=== PATIENT | female | born 1975 | race American Indian/Alaskan Native ===

== ENCOUNTER 2016-11-01 17:24 | Emergency (ER) | payer MEDICAID ==
[2016-11-01 17:45] VITALS: BP 144/91
--- NOTE | 2016-11-01 17:54 | Emergency Department Report ---
Chief Complaint: Abdominal Pain Stated Complaint: 7 WKS /SEVERE ABD PAIN Time Seen by Provider: 11/01/16 17:49 - HPI History of Present Illness: PT states she found out she was at the end of last month. PT states she is high risk and has appointment for US next week. PT reports lower suprapubic abd pain x 2 days. PT states the pain became worse today. - ROS Review of Systems: - vaginal bleeding - discharge - dysuria + rectal pain - Exam Vital Signs: Vital Signs 11/01/16 17:40 Temperature 99.3 F Pulse Rate 79 Respiratory 20 Rate Blood Pressure 144/91 O2 Sat by Pulse 100 Oximetry Physical Exam: PT looks well, non toxic. steady gait. pt's abd is soft. with suprapubic tenderness. MSE screening note: Focused history and physical exam performed. Due to findings the following was ordered: ED Disposition for MSE Condition: Stable Instructions: Abdominal Pain (ED)
[2016-11-01 18:27] LABS: Basophils % (Auto) 1.2 % (0.0-1.8); Eosinophils % (Auto) 1.9 % (0.0-4.3); Hematocrit 40.3 % (30.3-42.9); Hemoglobin 13.1 gm/dl (10.1-14.3); Mean Corpuscular HGB Conc 33 % (30-34); Mean Corpuscular Hemoglobin 27 pg (28-32); Mean Corpuscular Volume 84 fl (79-97); Platelet Count 216 K/mm3 (140-440); Red Blood Count 4.79 M/mm3 (3.65-5.03); Red Cell Distribution Width 14.1 % (13.2-15.2); White Blood Count 5.2 K/mm3 (4.5-11.0)
[2016-11-01 18:45] LABS: Alanine Aminotransferase 25 units/L (7-56); Albumin 3.6 g/dL (3.9-5); Albumin/Globulin Ratio 1.2 %; Alkaline Phosphatase 67 units/L (35-129); Anion Gap 17 mmol/L; BUN/Creatinine Ratio 11.42; Bilirubin,Total < 0.2 mg/dL (0.1-1.2); Blood Urea Nitrogen 8 mg/dL (7-17); Calcium 8.7 mg/dL (8.4-10.2); Carbon Dioxide 23 mmol/L (22-30); Chloride 106.7 mmol/L (98-107); Glucose 107 mg/dL (65-100); Potassium 3.8 mmol/L (3.6-5.0); Sodium 143 mmol/L (137-145); Total Protein 6.5 g/dL (6.3-8.2)
--- NOTE | 2016-11-01 20:36 | Ultrasound Report ---
FINAL REPORT PROCEDURE: US OB TRANSVAGINAL TECHNIQUE: Real-time transvaginal sonography of the uterus, placenta, amniotic fluid, adnexa, and fetus was performed with image documentation. Measurements were obtained to determine age/size. M-mode Doppler was used to document heartbeat. CPT 74436 HISTORY: pain COMPARISON: No prior studies are available for comparison. FINDINGS: Possible gestational sac is seen in the endometrial canal measuring 11.9 millimeters in diameter corresponding to 6 weeks 0 days gestational age. Estimated date of delivery based on this measurement is June 27, 2017. Questionable yolk sac is seen but pole is not seen. viability is uncertain. Likely 1.4 cm fibroid is seen in the right side of the body of the uterus. Right ovary measures 2.6 x 2.8 x 2.9 cm. Left ovary measures 4.6 x 2.4 x 4.0 cm. No adnexal masses are seen. No free pelvic fluid is seen. IMPRESSION: Possible early IUP is seen at 6 weeks 0 days gestational age but the pole is not identified. viability is uncertain and serial followup quantitative beta HCG levels are recommended. Repeat ultrasound in 1 weeks time may be useful if these continue to rise.
--- NOTE | 2016-11-02 08:26 | Ultrasound Report ---
FINAL REPORT PROCEDURE: US OB \T\lt; = 14 WEEKS FETUS TECHNIQUE: Transabdominal grayscale and color imaging of the pelvis was performed. HISTORY: pain COMPARISON: Ultrasound OB transvaginal 11/01/2016 1819 hours FINDINGS: The uterus measures 15.3 x 7.2 x 6.2 centimeters. There is an intrauterine saclike structure if a gestational sac measuring 6 weeks 1 day age. No pole is identified. 1.4 x 1.5 x 1.5 centimeter hypoechoic fibroid within the posterior uterus is seen. There is no free fluid. The left ovary measures 4.6 x 2.4 x 4 centimeters and the right ovary measures 2 x 1.7 x 2.3 centimeters. Blood flow is present to both ovaries. IMPRESSION: Intrauterine saclike structure possibly a gestational sac without identified pole. Blighted ovum, early intrauterine gestation without yet identified pole as well as pseudo gestational sac of with not seen ectopic are not excluded. Close clinical followup to include serial beta HCGs is well as follow-up ultrasound is recommended. Posterior uterine fibroid. Normal bilateral ovaries.
--- NOTE | 2016-11-06 18:38 | ED Elopement Review ---
ED Pt Elopement review - Results review Lab results: Laboratory Tests 11/01/16 11/01/16 11/01/16 18:07 18:07 18:07 WBC 5.2 RBC 4.79 Hgb 13.1 Hct 40.3 MCV 84 MCH 27 L MCHC 33 RDW 14.1 Plt Count 216 Lymph % (Auto) 19.7 Henry % (Auto) 7.4 H Eos % (Auto) 1.9 Baso % (Auto) 1.2 Lymph # 1.0 L Henry # 0.4 Eos # 0.1 Baso # 0.1 Seg Neutrophils % 69.8 Seg Neutrophils # 3.7 Sodium 143 Potassium 3.8 Chloride 106.7 Carbon Dioxide 23 Anion Gap 17 BUN 8 Creatinine 0.7 Estimated GFR > 60 BUN/Creatinine Ratio 11.42 Glucose 107 H Calcium 8.7 Total Bilirubin < 0.2 AST 18 ALT 25 Alkaline Phosphatase 67 Total Protein 6.5 Albumin 3.6 L Albumin/Globulin Ratio 1.2 HCG, Quant 5913 H Blood Type 11/01/16 18:07 WBC RBC Hgb Hct MCV MCH MCHC RDW Plt Count Lymph % (Auto) Henry % (Auto) Eos % (Auto) Baso % (Auto) Lymph # Henry # Eos # Baso # Seg Neutrophils % Seg Neutrophils # Sodium Potassium Chloride Carbon Dioxide Anion Gap BUN Creatinine Estimated GFR BUN/Creatinine Ratio Glucose Calcium Total Bilirubin AST ALT Alkaline Phosphatase Total Protein Albumin Albumin/Globulin Ratio HCG, Quant Blood Type O POSITIVE - Call Back decision Pt Call Back Decision: Pt to F/U with PMD (follow-up with your HIGH SCHOOL SCIENCE TEACHER as the ultrasound shows a threatened miscarriage)
== END 2016-11-01 23:50 | disposition left against medical advice (07) ==
LOC: ED 17:24
DX: O26.891 Other specified pregnancy related conditions, first trimester (principal); R10.30 Lower abdominal pain, unspecified; Z3A.01 Less than 8 weeks gestation of pregnancy; Z53.21 Procedure and treatment not carried out due to patient leaving prior to being seen by health care provider
CPT/HCPCS: 36415; 76801; 76817; 80053; 84702; 85025; 86900; 86901

== ENCOUNTER 2016-12-27 08:08 | Emergency (ER) | payer MEDICAID ==
[2016-12-27 08:41] LABS: Basophils % (Auto) 0.9 % (0.0-1.8); Eosinophils % (Auto) 2.1 % (0.0-4.3); Hematocrit 40.6 % (30.3-42.9); Hemoglobin 13.2 gm/dl (10.1-14.3); Mean Corpuscular HGB Conc 33 % (30-34); Mean Corpuscular Hemoglobin 27 pg (28-32); Mean Corpuscular Volume 84 fl (79-97); Platelet Count 204 K/mm3 (140-440); Red Blood Count 4.84 M/mm3 (3.65-5.03); Red Cell Distribution Width 13.6 % (13.2-15.2); White Blood Count 3.7 K/mm3 (4.5-11.0)
--- NOTE | 2016-12-27 10:52 | Ultrasound Report ---
ULTRASOUND OB LESS THAN 14 WEEKS - TRANSABDOMINAL AND TRANSVAGINAL INDICATION: Possible retained products of conception. Patient states passing fetus today. Serum beta-hCG of 51.77 units. COMPARISON: 11/01/2016. FINDINGS: Transabdominal and transvaginal pelvic sonography performed in this patient with clinical age of 14 weeks and 5 days and EDC of 06/22/2017. An anteverted 12.4 x 6.3 x 7.1 cm uterus somewhat heterogeneous with an approximately 1.4 x 1.1 cm possible fibroid centrally towards the right, endovaginal image 9. Endometrial thickness estimated at 8 mm, endovaginal image 4. No viable intrauterine gestation identified at this time. No significant free fluid. Right ovary is 2.9 x 3.4 x 2.7 cm with a 2.3 cm hypoechoic cyst with low level intrinsic echoes/possible corpus luteum. Unremarkable left ovary measures 2.5 x 1.2 x 3 cm. CONCLUSION: 1. No sonographic evidence of a viable intrauterine gestation or definite retained products of conception at this time, as described. Please also correlate clinically and with serial serum beta-hCG values. 2. Both ovaries visualized with possible corpus luteum on the right. 3. Small uterine fibroid again noted. Thank you for the opportunity to participate in this patient's care.
[2016-12-27] MEDS ORDERED: TORADOL IM ONE (13:07)
[2016-12-27 14:16] VITALS: BP 123/76
--- NOTE | 2016-12-27 14:33 | Emergency Department Report ---
ED Female HPI - General Chief complaint: Vaginal Bleeding Stated complaint: MISCARRIAGE X 2WKS AGO Time Seen by Provider: 12/27/16 12:52 Source: patient Mode of arrival: Ambulatory Limitations: No Limitations - History of Present Illness Initial comments: 41 yo female with a past medical history of anemia and umbilical hernia repair presents to the hospital complaints of suprapubic abdominal pain and vaginal bleeding. Patient states she was told 3 weeks ago by her STICKER HAND she was having a miscarriage. She had ultrasound 11 weeks by dates but the ultrasound without 6 weeks gestation. No specific medications have been given. Patient initially had bleeding that seemed to stop but then restarted today. Bleeding is moderate and not severe. Patient presented here because she had worsening 9/10 suprapubic cramping abdominal pain. Patient also complains some malodorous vaginal discharge 1 week even prior to bleeding recurrence. No complaints of fever, nausea, vomiting, or dysuria. STICKER HAND: Dr. Huerta [employer] affiliated - Related Data Previous Rx's Medication Instructions Recorded Last Taken Type Fluconazole [Diflucan TAB] 150 mg PO ONCE #1 tablet 12/27/16 Unknown Rx Ibuprofen [Motrin] 800 mg PO Q8HR PRN #30 tablet 12/27/16 Unknown Rx metroNIDAZOLE [Flagyl] 500 mg PO Q12HR #14 tab 12/27/16 Unknown Rx traMADol [Ultram 50 MG tab] 50 mg PO Q6HR PRN #20 tablet 12/27/16 Unknown Rx Allergies Allergy/AdvReac Type Severity Reaction Status Date / Time Penicillins Allergy Itching Verified 05/01/13 21:04 ED Review of Systems ROS: Stated complaint: MISCARRIAGE X 2WKS AGO Other details as noted in HPI Comment: All other systems reviewed and negative Other: Constitutional: No fevers chills Eyes: No eye pain visual changes ENT: No ear pain or throat pain Neck: Denies pain Respiratory: Denies cough wheezing shortness of breath Cardiovascular: Denies chest pain, palpitations, syncope GI: Denies nausea, vomiting, diarrhea : Denies dysuria Musculoskeletal: Denies back pain, joint swelling Skin: Denies rash, lesions, erythema Neurologic: Denies headache, numbness, weakness Psychiatric: Denies suicidal ideation, hallucinations ED Past Medical Hx - Past Medical History Previous Medical History?: Yes Hx Hypertension: No Hx Congestive Heart Failure: No Hx Diabetes: No Hx Deep Vein Thrombosis: No Hx Renal Disease: No Hx Sickle Cell Disease: No (trait) Hx Seizures: No Hx Asthma: No Hx COPD: No Hx HIV: No Additional medical history: anemia - Surgical History Past Surgical History?: Yes Additional Surgical History: Umbilical hernia repair - Social History Smoking Status: Never Smoker Substance Use Type: Non Opiate Pain - Medications Home Medications: Home Medications Medication Instructions Recorded Confirmed Last Taken Type Fluconazole [Diflucan TAB] 150 mg PO ONCE #1 tablet 12/27/16 Unknown Rx Ibuprofen [Motrin] 800 mg PO Q8HR PRN #30 tablet 12/27/16 Unknown Rx metroNIDAZOLE [Flagyl] 500 mg PO Q12HR #14 tab 12/27/16 Unknown Rx traMADol [Ultram 50 MG tab] 50 mg PO Q6HR PRN #20 tablet 12/27/16 Unknown Rx ED Physical Exam - General Limitations: No Limitations - Other Other exam information: General: No limitations, patient is alert in no acute distress Head exam: Atraumatic, normocephalic Eyes exam: Normal appearance ENT: Moist mucous membrane, normal oropharynx Neck exam: Normal inspection, full range of motion, no meningismus nontender Respiratory exam: Clear to auscultation bilateral, no wheezes, rales, crackles Cardiovascular: Normal rate and rhythm, normal heart sounds Abdomen: Soft, nondistended, suprapubic tenderness, with normal bowel sounds, no rebound, or guarding : Mild vaginal bleeding, no CMT or adnexal tenderness Extremity: Full range of motion normal inspection no deformity Back: Normal Inspection, full range of motion, no tenderness Neurologic: Alert, oriented x3, cranial nerves intact, no motor or sensory deficit Psychiatric: normal affect, normal mood Skin: Warm, dry, intact ED Course Vital Signs 12/27/16 12/27/16 12/27/16 08:22 14:14 14:15 Temperature 98.7 F 98.6 F Pulse Rate 62 76 Respiratory 18 16 16 Rate Blood Pressure 123/82 Blood Pressure 123/76 [Right] O2 Sat by Pulse 100 99 99 Oximetry - Reevaluation(s) Reevaluation #1: 12/27/16 14:42 Patient given Toradol for pain. - Consultations Consultation #1: 12/27/16 14:28 Case D/w DR Huerta degreasing solution mixer ([facility]). He states that patient had a blighted ovum and she is supposed to follow-up for serial quadrants to ensure that the level decreases to 0. She makes her December 02 appointment patient has not followed up since initial diagnosis. He recommends the patient follow up next week for repeat beta Quant. He was informed that patient will be treated for Trichomonas and yeast and that time and chlamydia have also been sent and pending. ED Medical Decision Making - Lab Data Result diagrams: 12/27/16 08:32 Lab Results 12/27/16 12/27/16 12/27/16 Range/Units 08:32 08:32 08:32 WBC 3.7 L (4.5-11.0) K/mm3 RBC 4.84 (3.65-5.03) M/mm3 Hgb 13.2 (10.1-14.3) gm/dl Hct 40.6 (30.3-42.9) % MCV 84 (79-97) fl MCH 27 L (28-32) pg MCHC 33 (30-34) % RDW 13.6 (13.2-15.2) % Plt Count 204 (140-440) K/mm3 Lymph % (Auto) 44.2 H (13.4-35.0) % Gulf % (Auto) 6.6 (0.0-7.3) % Eos % (Auto) 2.1 (0.0-4.3) % Baso % (Auto) 0.9 (0.0-1.8) % Lymph # 1.6 (1.2-5.4) K/mm3 Gulf # 0.2 (0.0-0.8) K/mm3 Eos # 0.1 (0.0-0.4) K/mm3 Baso # 0.0 (0.0-0.1) K/mm3 Seg Neutrophils % 46.2 (40.0-70.0) % Seg Neutrophils # 1.7 L (1.8-7.7) K/mm3 HCG, Quant 51.77 H (0-4) mIU/mL Blood Type O POSITIVE LESTER Antibody Screen Negative Wet prep positive for Trichomonas and yeast - Radiology Data Radiology results: report reviewed (transvaginal/pelvic ultrasound: No IUP. No retained products of conception. Both ovaries visualized with possible corpus luteum on the right. small uterine fibroid) - Medical Decision Making Patient received Flagyl 500 for Trichomonas OB discharged on Flagyl twice a day 7 days. Patient also be discharged on Diflucan for yeast. Case was discussed with her STICKER HAND. Patient will be encouraged to follow-up with her treatment plan with STICKER HAND for trending of her beta hCG quantitative and also to follow-up with her gonorrhea and chlamydia testing. - Differential Diagnosis POC, cervicitis, PID Critical Care Time: No Critical care attestation.: If time is entered above; I have spent that time in minutes in the direct care of this critically ill patient, excluding procedure time. ED Disposition Clinical Impression: Trichomonas vaginitis, Miscarriage, Yeast vaginitis Disposition: DISCHARGED TO HOME OR SELFCARE Is pt being admited?: No Does the pt Need Aspirin: No Condition: Stable Instructions: Trichomoniasis (ED), Vulvovaginal Candidiasis (ED), Spontaneous Miscarriage (ED) Additional Instructions: Take the medication as prescribed. Your partner needs to be treated for Trichomonas as well. Follow-up PIN TICKET MACHINE OPERATOR doctor next week to continue to make sure that she baby home on level decreases to 0. Your gonorrhea and chlamydia tests are pending and take approximately 3-4 days result. You may obtain results in medical records with a photo ID. You may also obtain results through the follow-up doctor office via medical record request. Prescriptions: Fluconazole [Diflucan TAB] 150 mg PO ONCE #1 tablet Ibuprofen [Motrin] 800 mg PO Q8HR PRN #30 tablet PRN Reason: Pain metroNIDAZOLE [Flagyl] 500 mg PO Q12HR #14 tab traMADol [Ultram 50 MG tab] 50 mg PO Q6HR PRN #20 tablet PRN Reason: Pain Referrals: MD ottoniel [Other] - 3-5 Days (follow up next week.) Time of Disposition: 14:53
[2016-12-27] MEDS ORDERED: FLAGYL PO ONE (14:43)
== END 2016-12-27 16:01 | disposition home or self-care (01) ==
LOC: ED 08:08
DX: O03.9 Complete or unspecified spontaneous abortion without complication (principal); O98.311 Other infections with a predominantly sexual mode of transmission complicating pregnancy, first trimester; A59.01 Trichomonal vulvovaginitis; B37.3 Candidiasis of vulva and vagina; Z3A.14 14 weeks gestation of pregnancy; Z88.0 Allergy status to penicillin
CPT/HCPCS: 36415; 76801; 76817; 84702; 85025; 86850; 86900; 86901; 87210; 87591; 99284; J1885

== ENCOUNTER 2018-08-24 15:28 | Emergency (ER) | payer MEDICAID ==
[2018-08-24 15:40] VITALS: BP 170/108
[2018-08-24] MEDS ORDERED: ULTRAM PO ONE (17:34)
[2018-08-24] MEDS ORDERED: ULTRAM ONE (17:35)
--- NOTE | 2018-08-24 17:39 | Emergency Department Report ---
ED Fall HPI - General Chief Complaint: Back Pain/Injury Stated Complaint: SEVERE BACK PAIN Time Seen by Provider: 08/24/18 16:21 Source: patient Mode of arrival: Ambulatory - History of Present Illness Initial Comments: 43-year-old -[place] female reports mild department complaining of lower back pain since [place] to the lower region. Pain is dull and throbbing pain started after she had a fall down 8 stairs landing on her buttocks with no saddle paresthesias, no loss of bowel, bladder, urinary retention. No hematuria, no dysuria, no fever, chills, sweats, abdominal pain. -: Sudden Place Fall Occurred: home Loss of Consciousness: none Prolonged Down Time?: no Symptoms Prior to Fall: none Location: back Severity: moderate Quality: dull, aching Context: tripped/slipped Associated Symptoms: denies: headache, neck pain, weakness, shortness of breath, abdominal pain, hematuria, vertigo, confusion - Related Data Previous Rx's Medication Instructions Recorded Last Taken Type Fluconazole [Diflucan TAB] 150 mg PO ONCE #1 tablet 12/27/16 Unknown Rx Ibuprofen [Motrin] 800 mg PO Q8HR PRN #30 tablet 12/27/16 Unknown Rx metroNIDAZOLE [Flagyl] 500 mg PO Q12HR #14 tab 12/27/16 Unknown Rx traMADol [Ultram 50 MG tab] 50 mg PO Q6HR PRN #20 tablet 12/27/16 Unknown Rx Acetaminophen/Codeine [Tylenol #3] 1 tab PO Q6H PRN #15 tab 08/24/18 Unknown Rx Ketorolac [Toradol] 10 mg PO Q6H PRN #15 tablet 08/24/18 Unknown Rx Allergies Allergy/AdvReac Type Severity Reaction Status Date / Time Penicillins Allergy Itching Verified 05/01/13 21:04 ED Review of Systems ROS: Stated complaint: SEVERE BACK PAIN Other details as noted in HPI Constitutional: denies: chills, fever Eyes: denies: eye pain, eye discharge, vision change ENT: denies: ear pain, throat pain Respiratory: denies: cough, shortness of breath, wheezing Cardiovascular: denies: chest pain, palpitations Endocrine: no symptoms reported Gastrointestinal: denies: abdominal pain, nausea, diarrhea Genitourinary: denies: urgency, dysuria, discharge Musculoskeletal: denies: back pain, joint swelling, arthralgia Skin: denies: rash, lesions Neurological: denies: headache, weakness, paresthesias Psychiatric: denies: anxiety, depression Hematological/Lymphatic: denies: easy bleeding, easy bruising ED Past Medical Hx - Past Medical History Hx Hypertension: No Hx Congestive Heart Failure: No Hx Diabetes: No Hx Deep Vein Thrombosis: No Hx Renal Disease: No Hx Sickle Cell Disease: No (trait) Hx Seizures: No Hx Asthma: No Hx COPD: No Hx HIV: No Additional medical history: anemia - Surgical History Additional Surgical History: Umbilical hernia repair - Social History Smoking Status: Never Smoker Substance Use Type: None - Medications Home Medications: Home Medications Medication Instructions Recorded Confirmed Last Taken Type Fluconazole [Diflucan TAB] 150 mg PO ONCE #1 tablet 12/27/16 Unknown Rx Ibuprofen [Motrin] 800 mg PO Q8HR PRN #30 tablet 12/27/16 Unknown Rx metroNIDAZOLE [Flagyl] 500 mg PO Q12HR #14 tab 12/27/16 Unknown Rx traMADol [Ultram 50 MG tab] 50 mg PO Q6HR PRN #20 tablet 12/27/16 Unknown Rx Acetaminophen/Codeine [Tylenol #3] 1 tab PO Q6H PRN #15 tab 08/24/18 Unknown Rx Ketorolac [Toradol] 10 mg PO Q6H PRN #15 tablet 08/24/18 Unknown Rx ED Physical Exam - General Limitations: No Limitations General appearance: alert, in no apparent distress - Head Head exam: Present: atraumatic, normocephalic - Eye Eye exam: Present: normal appearance, PERRL, EOMI Pupils: Present: normal accommodation - ENT ENT exam: Present: normal exam, mucous membranes moist - Neck Neck exam: Present: normal inspection, full ROM - Respiratory Respiratory exam: Present: normal lung sounds bilaterally. Absent: respiratory distress, wheezes, rales, chest wall tenderness, accessory muscle use, decreased breath sounds - Cardiovascular Cardiovascular Exam: Present: regular rate, normal rhythm. Absent: systolic murmur, diastolic murmur, rubs, gallop - GI/Abdominal GI/Abdominal exam: Present: soft, normal bowel sounds - Extremities Exam Extremities exam: Present: normal inspection - Back Exam Back exam: Present: normal inspection, full ROM, tenderness, paraspinal tenderness, vertebral tenderness, other ( tenderness to her coccyx region with palpation). Absent: CVA tenderness (R), CVA tenderness (L) - Neurological Exam Neurological exam: Present: alert, oriented X3, CN II-XII intact, normal gait. Absent: motor sensory deficit, reflexes normal - Psychiatric Psychiatric exam: Present: normal affect, normal mood - Skin Skin exam: Present: warm, dry, intact, normal color. Absent: rash ED Course Vital Signs 08/24/18 15:37 Temperature 98.7 F Pulse Rate 72 Respiratory 16 Rate Blood Pressure 170/108 O2 Sat by Pulse 96 Oximetry ED Medical Decision Making - Radiology Data Radiology results: report reviewed - Medical Decision Making X-ray report was reviewed with the patient in detail. She was shown where her injuries were. We also discussed the nature of her injury and the treatment plan associated with her injury. She expressed an understanding for what was needed and the timeline for healing Critical care attestation.: If time is entered above; I have spent that time in minutes in the direct care of this critically ill patient, excluding procedure time. ED Disposition Clinical Impression: Tailbone injury Disposition: DC-01 TO HOME OR SELFCARE Is pt being admited?: No Does the pt Need Aspirin: No Condition: Stable Instructions: Coccyx Injury (ED), Ice Pack Application (ED) Referrals: PRIMARY CAREMD [Primary Care Provider] - 3-[address] [facility] [Provider Group] - 3-5 Days
--- NOTE | 2018-08-24 17:40 | XRay Report ---
FINAL REPORT EXAM: XR SPINE LUMBOSACRAL 2-3V HISTORY: fall down 8 stairs TECHNIQUE: AP, lateral and coned-down views of the lumbar spine PRIORS: None. FINDINGS: There is subtle lucency in the proximal coccyx at approximately the C2 level. Correlation with pain o nory this area is recommended to exclude fracture of the tailbone. The lumbar vertebral body heights and disc spaces are well maintained. The alignment is normal. No e vidence for spondylolysis or spondylolisthesis is seen. Pedicles are intact bilaterally at all levels . The paraspinal soft tissues are unremarkable. IMPRESSION: Normal lumbar spine. Subtle lucency in the proximal coccyx. Clinical correlation is needed regarding possible tailbone fracture.
== END 2018-08-24 18:05 | disposition home or self-care (01) ==
LOC: ED 15:28
DX: S39.92XA Unspecified injury of lower back, initial encounter (principal); Z88.0 Allergy status to penicillin; W10.9XXA Fall (on) (from) unspecified stairs and steps, initial encounter; Y92.098 Other place in other non-institutional residence as the place of occurrence of the external cause; Y93.89 Activity, other specified; Y99.8 Other external cause status
CPT/HCPCS: 72100; 99283